=== PATIENT | male | born 1945 | race Two or more races ===

== ENCOUNTER 2025-01-08 15:18 | Inpatient (IN) | payer OTHER, MEDICAID ==
[~2025-01-08] VITALS: Ht 172.7 cm; Wt 81.4 kg
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
--- NOTE | 2025-01-08 16:13 | DVH ---
EXAM: XY L FOOT 3 VIEW XRAY CLINICAL INDICATION: INJURY FX TECHNIQUE: XY L FOOT 3 VIEW XRAY Comparison: None FINDINGS/IMPRESSION: Displacement of the 5th metatarsophalangeal joint. Distal tibia fracture is visualized.
--- NOTE | 2025-01-08 16:18 | DVH ---
EXAM: XR Left Tibia and Fibula, 2 Views CLINICAL INDICATION: INJURY FX TECHNIQUE: Frontal and lateral views of the left tibia and fibula. COMPARISON: None FINDINGS: BONES/JOINTS: Comminuted spiral fracture of the distal tibia and proximal fibula. No dislocation. SOFT TISSUES: Soft tissue swelling.. No radiopaque foreign body. OTHER FINDINGS: . IMPRESSION: Comminuted spiral fracture of the distal tibia and proximal fibula.
--- NOTE | 2025-01-08 16:42 | DVH ---
CLINICAL INDICATION: INJURY FX TECHNIQUE: 3 radiographic views of the left ankle were obtained. Comparison: Tibia and fibula radiograph 01/08/2025 FINDINGS/IMPRESSION: Overlying cast material limits evaluation of the bony and soft tissue fine details. Redemonstration of comminuted spiral fracture of the distal tibia in similar anatomic alignment. No ankle dislocation. Small plantar and posterior calcaneal bony spurs.
[2025-01-08 16:45] LABS: Basophils # (auto) 0 10 ^3/uL (0-0.2); Basophils % (auto) 0.5 % (0.0-2.0); Eosinophils # (auto) 0.1 10 ^3/uL (0-0.8); Eosinophils % (auto) 1.4 % (0.0-7.0); Hemoglobin 13.9 g/dL (13.5-17.5); Lymphocytes # (auto) 3.1 10 ^3/uL (0.4-5.4); Lymphocytes % (auto) 33.7 % (10.0-50.0); Mean Corpuscular Hemoglobin 30.8 pg (28.0-32.0); Mean Corpuscular Hgb Conc. 33.8 g/dL (32.0-36.0); Monocytes % (auto) 10.4 % (0.0-12.0); Neutrophils # (auto) 4.9 10 ^3/uL (1.6-8.6); Nucleated Red Blood Cells % 0.1 %; Platelet Count (auto) 194 10^3/uL (140-450); Red Cell Distribution Width 14.4 % (11.8-14.3); White Blood Cell 9.1 10^3/uL (4.4-10.8)
[2025-01-08 16:55] LABS: INR 0.96 (0.9-1.15); Partial Thromboplastin Time 26.4 SEC (24.5-34.5); Prothrombin Time 10.2 sec (9.3-11.8)
[2025-01-08 16:58] LABS: Alanine Aminotransferase 17 U/L (7-40); Alkaline Phosphatase 82 U/L (46-116); Anion Gap 8 (5-15); BUN/Creatinine Ratio 14.8 (10.0-20.0); Blood Urea Nitrogen 19 mg/dL (9-23); Calcium 9.6 mg/dL (8.7-10.4); Carbon Dioxide 24 mmol/L (20-31); Glucose 102 mg/dL (74-106); Potassium 4.2 mmol/L (3.5-5.1); Sodium 142 mmol/L (136-145); Total Protein 7.2 g/dL (5.7-8.2)
[2025-01-08 16:59] LABS: Albumin 4.2 g/dL (3.2-4.8); Aspartate Aminotransferase 20 U/L (13-40); Bilirubin, Total 0.5 mg/dL (0.2-1.0); Chloride 110 mmol/L (98-107)
[2025-01-08 17:28] LABS: CRP High Sensitivity 1.37 mg/dL (<1.0)
[2025-01-08 18:31] LABS: Erythrocyte Sedimentation Rate 19 mm/hr (0-20)
[2025-01-08] MEDS ORDERED: ACETAMINOPHEN 325 MG TAB PO PRN (22:30)
[2025-01-08] MEDS ORDERED: MORPHINE SULFATE INJ 2 MG/ml SYRG IV PRN ×2 (22:30)
[2025-01-08] MEDS ORDERED: NITROGLYCERIN 0.4 MG SL TAB SL PRN (22:30)
[2025-01-08] MEDS ORDERED: ONDANSETRON HCL 4 MG/2 ML VIAL IV PRN (22:30)
--- NOTE | 2025-01-08 23:03 | DVH ---
CHEST RADIOGRAPH Indication: presurgical Technique: Single frontal view of the chest was obtained COMPARISON: None FINDINGS: Lines and Tubes: None Lungs: Clear Pleura: No effusion. No pneumothorax. Cardiomediastinal contours: Unremarkable IMPRESSION: No abnormality demonstrated.
[2025-01-09] VITALS (8 sets, daily range): BP systolic 115–150; BP diastolic 54–83; PULSE 65–87; RESP 16–19; TEMP 97.4–98.3; O2SAT 92–97
[2025-01-09] MEDS: D5W/SOD CHL 0.45% 1,000 ML IV ONE (00:56)
--- NOTE | 2025-01-09 01:23 | DVHHP2 ---
SERENITY YEAGER SPEEDER FRAME TENDER 01/09/25 0123: History of Present Illness Reason for Visit: Left leg injury History of Present Illness 79-year-old male with past medical history of hypertension presents with complaints of mechanical fall on Wednesday that resulted in left leg injury. Patient initially went to [facility] and was diagnosed with an acute left tibia/fibula fracture. Was discharged home. Patient was sent into the emergency department on January 08, 2025 by his PCP for further evaluation of the left lower extremity due to the patient being on Eliquis. It is unknown why the patient is on Eliquis at this time. Patient denies any fevers, chills, shortness of breath, chest pain, history of AFib, history of DVTs, abdominal pain, and additional injuries. Cardiovascular: HTN Smoke: No ALCOHOL: none Drugs: None Lives: Alone Review of Systems Constitutional: No: Fever, Chills, Sweats, Weakness, Malaise, Other Eyes: No: Pain, Vision change, Conjunctivae inflammation, Eyelid inflammation, Other, Redness ENT: No: Ear pain, Ear discharge, Nose pain, Nose discharge, Nose congestion, Mouth pain, Mouth swelling, Throat pain, Throat swelling, Other Respiratory: No: Cough, Dry, Shortness of breath, SOB with excertion, Wheezing, Hemoptysis, Pleuritic Pain, Sputum, Wheezing, Other Cardiovascular: No: Chest Pain, Palpitations, Orthopnea, Paroxysmal Noc. Dyspnea, Edema, Lt Headedness, Other Gastrointestinal: No: Nausea, Vomiting, Abdominal Pain, Diarrhea, Constipation, Melena, Hematochezia, Other Genitourinary: No Dysuria, No Frequency, No Incontinence, No Hematuria, No Retention, No Other Musculoskeletal: leg pain; No: other, neck pain, shoulder pain, arm pain, back pain, hand pain, foot pain Skin: No: Rash, Lesions, Jaundice, Bruising, Other Neurological: No: Weakness, Numbness, Incoordination, Change in speech, Confusion, Seizures, Other Allergies: Coded Allergies: Codeine (Verified Allergy, Mild, 01/08/25) Morphine (Verified Allergy, Mild, 01/08/25) Medications Current Medications Medications Dose Ordered Sig/Javier Route Start Time Stop Time Status Last Admin Dose Admin Acetaminophen 650 mg Q6HP PRN PO 01/08/25 22:30 Acetaminophen/ Hydrocodone Bitart 1 tab Q4HP PRN PO 01/08/25 22:30 Ondansetron HCl 4 mg Q4HP PRN IV 01/08/25 22:30 Morphine Sulfate 2 mg Q4HPRN PRN IV 01/08/25 22:30 UNV Enoxaparin Sodium 40 mg DAILY SC 01/09/25 10:00 Nitroglycerin 0.4 mg Q5MINP PRN SL 01/08/25 22:30 Morphine Sulfate 2 mg Q30M PRN IV 01/08/25 22:30 UNV Exam Vital Signs Vital Signs Date Time Temp Pulse Resp B/P (MAP) Pulse Ox O2 Delivery O2 Flow Rate FiO2 01/08/25 15:37 98.4 84 18 147/75 (99) 95 98.4 General Appearance: Alert, Oriented X3, Cooperative, mild distress HEENT: Atraumatic, PERRLA, EOMI Respiratory: Clear to auscultation, Normal air movement Cardiovascular: Regular rate, Normal S1, Normal S2 Abdominal: Normal bowel sounds, Soft, No tenderness Extremities: No edema, Other (Unable to assess left lower extremity due to splinting and dressings) Neuro: Normal speech, Strength at 5/5 X4 ext Psych/Mental Status: Mental status NL, Mood NL Labs/Xrays Labs Test 01/08/25 16:09 Range/Units White Blood Count 9.1 4.4-10.8 10^3/uL Red Blood Count 4.50 4.5-5.90 10^6/uL Hemoglobin 13.9 13.5-17.5 g/dL Hematocrit 41.0 41.0-53.0 % Mean Corpuscular Volume 91.0 80.0-100.0 fL Mean Corpuscular Hemoglobin 30.8 28.0-32.0 pg Mean Corpuscular Hemoglobin Concent 33.8 32.0-36.0 g/dL Red Cell Distribution Width 14.4 H 11.8-14.3 % Platelet Count 194 140-450 10^3/uL Mean Platelet Volume 8.7 6.9-10.8 fL Neutrophils (%) (Auto) 54.0 37.0-80.0 % Lymphocytes (%) (Auto) 33.7 10.0-50.0 % Monocytes (%) (Auto) 10.4 0.0-12.0 % Eosinophils (%) (Auto) 1.4 0.0-7.0 % Basophils (%) (Auto) 0.5 0.0-2.0 % Neutrophils # (Auto) 4.9 1.6-8.6 10 ^3/uL Lymphocytes # (Auto) 3.1 0.4-5.4 10 ^3/uL Monocytes # (Auto) 1.0 0-1.3 10 ^3/uL Eosinophils # (Auto) 0.1 0-0.8 10 ^3/uL Basophils # (Auto) 0 0-0.2 10 ^3/uL Nucleated Red Blood Cells 0.1 % Erythrocyte Sedimentation Rate 19 0-20 mm/hr Prothrombin Time 10.2 9.3-11.8 sec Prothrombin Time INR 0.96 0.9-1.15 Activated Partial Thromboplast Time 26.4 24.5-34.5 SEC Sodium Level 142 136-145 mmol/L Potassium Level 4.2 3.5-5.1 mmol/L Chloride Level 110 H 98-107 mmol/L Carbon Dioxide Level 24 20-31 mmol/L Anion Gap 8 5-15 Blood Urea Nitrogen 19 9-23 mg/dL Creatinine 1.28 0.700-1.30 mg/dL Glomerular Filtration Rate Calc 57 >90 mL/min BUN/Creatinine Ratio 14.8 10.0-20.0 Serum Glucose 102 74-106 mg/dL Lactic Acid Level 1.3 0.4-2.0 mmol/L Calcium Level 9.6 8.7-10.4 mg/dL Total Bilirubin 0.5 0.2-1.0 mg/dL Aspartate Amino Transferase (AST) 20 13-40 U/L Alanine Aminotransferase (ALT) 17 7-40 U/L Alkaline Phosphatase 82 46-116 U/L C-Reactive Protein High Sensitivity 1.37 H <1.0 mg/dL B-Type Natriuretic Peptide 63.58 0-100 pg/mL Total Protein 7.2 5.7-8.2 g/dL Albumin 4.2 3.2-4.8 g/dL Assessment/Plan Assessment/Plan Acute comminuted spiral fracture of the distal tibia and proximal fibula Displaced left fifth metatarsal phalangeal joint Hypertension Plan Admit to telemetry Orthopedic surgeon consult. Cardiology consult. Echocardiogram for cardiac clearance. Unknown why the patient is on Eliquis. Hold Eliquis. IVF GI ppx pepcid / DVT ppx lovenox Plan discussed with: Patient My Orders Orders - SERENITY YEAGER NP Procedure Category Date Status Time Admit ADMIT 01/08/25 Transmitted 22:20 Code Status CODE 01/08/25 Transmitted 22:20 Vital Signs JOAQUIN 01/08/25 In Process 22:20 Review Orders With JOAQUIN 01/08/25 In Process Adm.Md 22:20 Npo (Nothing By DIET 01/09/25 Transmitted Mouth) Diet Breakfast Oxygen By Face Mask RT 01/08/25 Transmitted 22:20 Acetaminophen Tablet PHA 01/08/25 In Process (Tylenol Tablet) 22:30 Notify Of Changes JOAQUIN 01/08/25 In Process From Base 22:20 Advance Directive JOAQUIN 01/08/25 In Process 22:20 Echo 2d Mode Cardiac US 01/08/25 Logged DOP 22:20 Basic Metabolic Panel LAB 01/09/25 Logged 05:00 Basic Metabolic Panel LAB 01/10/25 Verified 05:00 Basic Metabolic Panel LAB 01/11/25 Verified 05:00 Basic Metabolic Panel LAB 01/12/25 Verified 05:00 Complete Blood Count LAB 01/09/25 Logged 05:00 Complete Blood Count LAB 01/10/25 Verified 05:00 Complete Blood Count LAB 01/11/25 Verified 05:00 Complete Blood Count LAB 01/12/25 Verified 05:00 Patient Condition ORDERS 01/08/25 Transmitted 22:20 Allergies JOAQUIN 01/08/25 In Process 22:20 Hydrocodone-Acet PHA 01/08/25 In Process 5/325mg Tab ([place] 22:30 Ondansetron Hcl PHA 01/08/25 In Process (Zofran) 22:30 Morphine Sulfate PHA 01/08/25 Pending Injection 22:30 Enoxaparin Sodium PHA 01/09/25 In Process (Lovenox) 10:00 Nitroglycerin PHA 01/08/25 In Process Sublingual (Ntrostat 22:30 Morphine Sulfate PHA 01/08/25 Pending Injection 22:30 Stat Ekg For Chest JOAQUIN 01/08/25 In Process Pain 22:20 Notify Md Of Changes JOAQUIN 01/08/25 In Process From Base 22:20 Rail Car Unloader For JOAQUIN 01/08/25 In Process 24 Hours 22:20 Emergency Dysrhythmia JOAQUIN 01/08/25 In Process Protocol 22:20 Rhythm Strips Once JOAQUIN 01/08/25 In Process Every Shift 22:20 Oxygen By Nasal RT 01/08/25 Transmitted Cannula 22:20 D5w/Sod Chl 0.45% PHA 01/08/25 In Process (D5w 1/2ns) 22:30 Chest Xray 1 View XY 01/08/25 Resulted 22:20 * Cardiology Consult CONS 01/09/25 Transmitted 01:14 Date of Service: Jan 09, 2025 Billing Provider: RADHA MINA MD Common Visit Codes: NOT BILLABLE RADHA MINA MD 01/11/25 1257: Review of Systems Allergies: Coded Allergies: Codeine (Verified Allergy, Mild, 01/08/25) Morphine (Verified Allergy, Mild, 01/08/25) Additional Comments Additional Comments Additional Comments Patient was seen and evaluated by me. I agree with the assessment and plan as outlined by my nurse practitioner. SERENITY YEAGER SPEEDER FRAME TENDER Jan 09, 2025 01:23 RADHA MINA MD Jan 11, 2025 12:57
[2025-01-09] MEDS ORDERED: CHOL20007 PO (05:05)
[2025-01-09] MEDS ORDERED: SIMV20TA20 PO (05:05)
[2025-01-09] MEDS ORDERED: APIX2.5T PO (05:05)
[2025-01-09] MEDS ORDERED: LOSA-534 PO (05:05)
--- NOTE | 2025-01-09 08:31 | ECG ---
[facility] Test Date: 2025-01-09 Test Time: 08:29:43 Pat Name: AGUSTIN GRIER Department: Respiratoy Room: 0202T A Gender: M Wares Sorter: [place] : 1945 Requested By: MARCUS GEORGE Order Number: [id number] Reading MD: Lamont Lal Measurements Intervals [place] Rate: 81 P: -7 NE: 137 QRS: -19 QRSD: 87 T: 39 QT: 389 QTc: 452 Interpretive Statements Sinus rhythm Borderline left axis deviation Electronically Signed On 01-10-2025 20:35:08 PDT by Lamont Lal Please click the below link to view image of tracing.
[2025-01-09] MEDS: ENOXAPARIN SOD 40 MG/0.4 ML SYRINGE SC SCH (10:00)
[2025-01-09] MEDS: HYDROcodone-ACET 5/325MG TAB PO PRN (10:15)
[2025-01-09 10:40] LABS: Chloride 106 mmol/L (98-107); Sodium 140 mmol/L (136-145)
[2025-01-09 10:41] LABS: Anion Gap 7 (5-15); Carbon Dioxide 27 mmol/L (20-31)
[2025-01-09 10:42] LABS: Basophils # (auto) 0 10 ^3/uL (0-0.2); Basophils % (auto) 0.3 % (0.0-2.0); Calcium 9.2 mg/dL (8.7-10.4); Eosinophils # (auto) 0.1 10 ^3/uL (0-0.8); Eosinophils % (auto) 1.1 % (0.0-7.0); Hematocrit 40.8 % (41.0-53.0); Hemoglobin 13.8 g/dL (13.5-17.5); Lymphocytes # (auto) 1.6 10 ^3/uL (0.4-5.4); Lymphocytes % (auto) 19.8 % (10.0-50.0); Mean Corpuscular Hemoglobin 30.6 pg (28.0-32.0); Mean Corpuscular Hgb Conc. 33.7 g/dL (32.0-36.0); Mean Corpuscular Volume 90.6 fL (80.0-100.0); Monocytes # (auto) 0.7 10 ^3/uL (0-1.3); Monocytes % (auto) 8.4 % (0.0-12.0); Neutrophils # (auto) 5.8 10 ^3/uL (1.6-8.6); Neutrophils % (auto) 70.4 % (37.0-80.0); Nucleated Red Blood Cells % 0.1 %; Platelet Count (auto) 178 10^3/uL (140-450); Red Cell Distribution Width 14.1 % (11.8-14.3); White Blood Cell 8.2 10^3/uL (4.4-10.8)
[2025-01-09 10:47] LABS: BUN/Creatinine Ratio 17.3 (10.0-20.0); Blood Urea Nitrogen 18 mg/dL (9-23)
[2025-01-09 10:51] LABS: Glucose 119 mg/dL (74-106)
--- NOTE | 2025-01-09 12:47 | DVHINCON2 ---
Consult Note Consult Consult Note Chief Complaint: Left lower extremity pain after ground-level fall. --- History of Present Illness: Patient is an approximately 79-year-old individual who presented to the emergency department after a ground-level fall. Imaging demonstrated a left distal tib/fib fracture. The patient was admitted for orthopedic evaluation and management. The patient reports localized left lower leg pain but denies any other joint pain. No complaints of numbness or weakness. No Splint.NWB Denies any Cardiac, Pulm or other hx. Denies DM2, Smoking hx. --- Physical Exam: Left Lower Extremity: Tenderness over distal tib/fib region Mild swelling noted No open wounds, erythema, or ecchymosis No gross deformity No signs of compartment syndrome Neurovascular status: Grossly intact distally Other Joints: No complaints or findings General: Alert and oriented, mild discomfort --- Imaging: X-ray shows a left distal tib/fib fracture ; Comminuted spiral fracture of the distal tibia and proximal fibula, no dislocation No additional acute findings --- Assessment: 1. Left distal tib/fib fracture --- Plan: Proceed with operative fixation of the Tib/Fib, Closed, Surgical intervention with ORIF discussed with patient, including risks, benefits, and alternatives Patient agreed to proceed with surgery NPO after midnight Informed consent obtained today by surgical team Surgery scheduled for tomorrow Recs to Hospitalist : if on blood thinner hold for at least 24 hours preoperatively All questions answered; patient and ER team in agreement with treatment plan Pain management and limb precautions discussed with patient and Nurse, To be managed by hospitalist Monitor for signs of neurovascular compromise or increased pain/swelling All questions answered, Contact Ortho as needed Plan discussed with: Patient, Other (bedside Nurse) Visit Coding Surgery Date of Service if different f: Jan 09, 2025 Billing Provider: BRIGIDO PARK Surgery Visit Codes: 48155 - INP CONSULT <55 MIN BRIGIDO PARK Jan 09, 2025 12:47
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
[2025-01-10] VITALS (14 sets, daily range): BP systolic 98–144; BP diastolic 65–80; PULSE 83–110; RESP 10–20; TEMP 97.8–98.7; O2SAT 90–97
[2025-01-10 07:13] LABS: Basophils # (auto) 0 10 ^3/uL (0-0.2); Basophils % (auto) 0.3 % (0.0-2.0); Eosinophils # (auto) 0.1 10 ^3/uL (0-0.8); Eosinophils % (auto) 1.4 % (0.0-7.0); Hematocrit 36.7 % (41.0-53.0); Hemoglobin 12.6 g/dL (13.5-17.5); Lymphocytes # (auto) 2.4 10 ^3/uL (0.4-5.4); Mean Corpuscular Hemoglobin 31.2 pg (28.0-32.0); Mean Corpuscular Hgb Conc. 34.3 g/dL (32.0-36.0); Monocytes # (auto) 0.9 10 ^3/uL (0-1.3); Monocytes % (auto) 10.5 % (0.0-12.0); Neutrophils # (auto) 5.1 10 ^3/uL (1.6-8.6); Neutrophils % (auto) 59.8 % (37.0-80.0); Platelet Count (auto) 163 10^3/uL (140-450); Red Blood Cells 4.03 10^6/uL (4.5-5.90); White Blood Cell 8.5 10^3/uL (4.4-10.8)
[2025-01-10 07:21] LABS: Anion Gap 8 (5-15); Carbon Dioxide 25 mmol/L (20-31); Chloride 106 mmol/L (98-107); Potassium 3.9 mmol/L (3.5-5.1); Sodium 139 mmol/L (136-145)
[2025-01-10 07:22] LABS: Calcium 9.2 mg/dL (8.7-10.4)
[2025-01-10 07:28] LABS: BUN/Creatinine Ratio 15.9 (10.0-20.0); Blood Urea Nitrogen 18 mg/dL (9-23); Glucose 103 mg/dL (74-106)
[2025-01-10] MEDS ORDERED: GLYCOPYRROLATE 0.2 MG/ML 1ML VIAL ONE (13:34)
[2025-01-10] MEDS ORDERED: ONDANSETRON HCL 4 MG/2 ML VIAL ONE (13:34)
[2025-01-10] MEDS ORDERED: MORPHINE SULF PF 5 MG/10 ML VIAL ONE (13:34)
[2025-01-10] MEDS ORDERED: fentaNYL CITRATE 100 MCG/2 ML VL ONE (13:34)
[2025-01-10] MEDS ORDERED: MIDAZOLAM HCL 2MG/2ML 2ml VIAL (1mg/ml) ONE (13:34)
--- NOTE | 2025-01-10 16:03 | DVHPN2 ---
Subjective Patient was currently in OR. Reviewed: Care Plan Changes from previous H/P or p: No Changes Eyes: No Pain, No Vision change, No Conjunctivae inflammation, No Eyelid inflammation, No Other, No Redness ENT: No Ear pain, No Ear discharge, No Nose pain, No Nose discharge, No Nose congestion, No Mouth pain, No Mouth swelling, No Throat pain, No Throat swelling, No Other Cardiovascular: No Chest Pain, No Palpitations, No Orthopnea, No Paroxysmal Noc. Dyspnea, No Edema, No Lt Headedness, No Other Respiratory: No Cough, No Dry, No Shortness of breath, No SOB with excertion, No Wheezing, No Hemoptysis, No Pleuritic Pain, No Sputum, No Other Gastrointestinal: No Nausea, No Vomiting, No Abdominal Pain, No Diarrhea, No Constipation, No Melena, No Hematochezia, No Other Genitourinary: No Dysuria, No Frequency, No Incontinence, No Hematuria, No Retention, No Other Musculoskeletal: No other, No neck pain, No shoulder pain, No arm pain, No back pain, No hand pain; leg pain; No foot pain Skin: No Rash, No Lesions, No Jaundice, No Bruising, No Other Objective Vitals Vital Signs Date Time Temp Pulse Resp B/P (MAP) Pulse Ox O2 Delivery O2 Flow Rate FiO2 01/10/25 12:52 98.7 83 17 131/72 (91) 97 98.7 01/10/25 08:00 Room Air* 0 21 Intake/Output Intake and Output 01/10/25 07:00 Intake Total 1775 ml Output Total 1900 ml Balance -125 ml Intake Oral 1025 ml IV Total 750 ml Output Urine Total 1900 ml # Bowel Movements 1 Medications Current Medications Medications Dose Ordered Sig/Javier Route Start Time Stop Time Status Last Admin Dose Admin Acetaminophen 650 mg Q6HP PRN PO 01/08/25 22:30 Acetaminophen/ Hydrocodone Bitart 1 tab Q4HP PRN PO 01/08/25 22:30 01/09/25 17:49 1 TAB Ondansetron HCl 4 mg Q4HP PRN IV 01/08/25 22:30 Morphine Sulfate 2 mg Q4HPRN PRN IV 01/08/25 22:30 Hold Enoxaparin Sodium 40 mg DAILY SC 01/09/25 10:00 Nitroglycerin 0.4 mg Q5MINP PRN SL 01/08/25 22:30 Morphine Sulfate 2 mg Q30M PRN IV 01/08/25 22:30 Hold Laboratory Results Laboratory Tests 01/10/25 04:56 Chemistry Test 01/10/25 04:56 Calcium Level 9.2 mg/dL (8.7-10.4) Microbiology Microbiology Date/Time Source Procedure Growth Status 01/09/25 06:50 Nose MRSA Screen - Final Complete Assessment/Plan Assessment/Plan 79-year-old male with a known history of hypertension, dyslipidemia who initially has been in the hospital with a left lower extremity swelling and pain. Patient was recently had a fall and was seen at [facility] was sent home. Patient was primary doctor send the patient for surgical intervention. 1. Acute comminuted spiral fracture of the distal tibia and proximal fibula 2.Displaced left fifth metatarsal phalangeal joint 3. Hypertension 4. dyslipidemia -continue pain meds as needed, surgical intervention today Plan discussed with: Other Date of Service: Jan 10, 2025 Billing Provider: RADHA MINA MD Common Visit Codes: NOT BILLABLE RADHA MINA MD Jan 10, 2025 16:03
--- NOTE | 2025-01-10 17:09 | DVHOP2 ---
Operative Report - 2 Report Details Date: 01/10/25 Preop Diagnosis: Left tibia/fibula fracture displaced Postop Diagnosis: Left tibia/fibula fracture displaced Surgeon: Maya Martinez MD Manager Of Data: Katrin MALCOLM Anesthesiologist: Francisco Javier Anesthesia: Regional Implant: Vertex tibial nail 10 x 330 mm, four locking screws Consent: The patient was informed of the risks and benefits of the procedure. These include but are not limited to complications of anesthesia, postoperative infection, incomplete relief of symptoms, recurrence of symptoms, damage to blood vessels, nerves and tendons, deep venous thrombosis, pulmonary embolism and possible need for repeat surgery in the future. Complications: None Estimated Blood Loss: 50 cc Fluids: See anesthesia record Findings: Distal spiral fracture of the tibia with some displacement and proximal fibula fracture, evidence of prior healed tibia fracture Indications for Surgery: Unstable tib-fib fracture left lower extremity Name of Procedure Performed Closed reduction, intramedullary nail left tibia fracture, C-arm fluoroscopy Procedure Details Procedure Details: Patient was brought to the operating room given spinal anesthetic with adequate analgesia obtained. Preop patient received IV Ancef. Tourniquet applied to left thigh. Left lower extremity was prepped and draped in sterile fashion. Surgical time-out was performed verifying patient, laterality, and procedure. I brought in C-arm to verify fracture pattern and reducability. Extremity elevat ed, exsanguinated with Esmarch, and tourniquet inflated to 250 mm Hg. Longitudinal incision was made at the superior patella. I dissect the subcutaneous tissue to identify the quadriceps tendon. I made a split in the tendon then attempted to pass the soft tissue protector from the vertex system though it was too tight so I extended the incision down the medial patella. Eventually, I was able to position the soft tissue sleeve a properly and this was verified with C-arm fluoroscopy and I passed a guidewire in the proximal tibia and again checked position AP and lateral views. I then removed the guidewire guide and used a Reamer to initiate my proximal tibia reaming. I then removed the short guidewire and passed a long guidewire and visualized it as across the fracture site distally. Guidewire position was confirmed with C-arm fluoroscopy. I used the depth gauge to measure my proposed nail length. I then began reaming starting with 9 mm and increasing in 0.5 mm increments up to 11.5 mm. I decided on a 10 x 330 mm nail. The nail was attached to the insertion guide. This was then tapped down over the guidewire until it reached the fracture site and I held the fracture reduced while passing it down to the physeal scar at the distal tibia. Position verified AP and lateral C-arm. I then positioned the C-arm to achieve a round hole anteriorly. I used C-arm to guide skin incision. I then used a Jenifer to spread soft tissue down to bone. I then used the C-arm and a drill and verified that I had hit the distal locking hole anterior posterior. I used a depth gauge and applied a anterior-posterior distal locking screw. I then brought the C-arm into lateral position and achieved round holes with the C-arm on the distal locking transverse holes. I again used C-arm to guide skin incision followed my using C-arm to guide drilling across the tibia and through the distal locking hole which was again verified with C-arm. I used a depth gauge and applied the distal locking screw. In similar fashion I applied the 2nd distal locking screw transversely. I then used a slap hammer two slap proximally to compress the fracture. There was some slight rotation and mild varus angulation though well within acceptable limits. I then used the guide hole at the proximal insertion jig passing the cannula down to skin made skin incision passed cannula bone drilled and measured screw length off the drill bit and applied a 40 mm proximal locking screw. I removed the insertion jig. I obtained AP and lateral x-rays throughout the length of the tibia verifying fracture reduction hardware placement. Wounds were irrigated with normal saline bulb syringe. Tourniquet was released and achieved hemostasis with Bovie. I repaired the extensor mechanism with 1. Ethibond interrupted [id number]. Deep subcu was closed with 0 Vicryl superficial subQ closed with 2-0 Vicryl skin with elaine wounds dressed sterilely. Patient tolerated the procedure well was brought to recovery room in stable condition. Condition Stable Disposition Still a Patient MAYA MARTINEZ MD Jan 10, 2025 17:09
[2025-01-10] MEDS ORDERED: NALOXONE HCL 0.4 MG/ML VIAL IV PRN (17:30)
[2025-01-10] MEDS ORDERED: DexAMETHasone SOD PHOS 10MG/1ML VIAL INJ IV PRN (17:30)
[2025-01-10] MEDS ORDERED: ONDANSETRON HCL 4 MG/2 ML VIAL IV PRN (17:30)
[2025-01-10] MEDS ORDERED: diphenhdrAMINE HCL 50 MG/1 ML VL IV PRN (17:30)
--- NOTE | 2025-01-10 18:41 | DVH ---
C-ARM FLUOROSCOPY: PROCEDURE: Left tibia ORIF FLUOROSCOPY TIME: 4 minutes and 31 seconds DAP: 1 mgy FINDINGS: Spot intraoperative C arm radiographs demonstrating left tibia ORIF. IMPRESSION: Please refer to surgical report for detailed findings.
[2025-01-10] MEDS: ceFAZolin 2 GM/D5W50ml 50 ML IV SCH (21:30)
[2025-01-10] MEDS: HYDROcodone-ACET 10/325MG TAB PO PRN (21:31)
[2025-01-11] VITALS (29 sets, daily range): BP systolic 102–140; BP diastolic 53–87; PULSE 78–111; RESP 15–20; TEMP 97.9–99.4; O2SAT 94–98
[2025-01-11 06:02] LABS: Basophils # (auto) 0 10 ^3/uL (0-0.2); Basophils % (auto) 0.2 % (0.0-2.0); Eosinophils # (auto) 0.1 10 ^3/uL (0-0.8); Eosinophils % (auto) 0.6 % (0.0-7.0); Hematocrit 34.1 % (41.0-53.0); Hemoglobin 11.9 g/dL (13.5-17.5); Lymphocytes # (auto) 1.6 10 ^3/uL (0.4-5.4); Lymphocytes % (auto) 15.9 % (10.0-50.0); Mean Corpuscular Hemoglobin 31.8 pg (28.0-32.0); Mean Corpuscular Volume 90.8 fL (80.0-100.0); Monocytes # (auto) 1.3 10 ^3/uL (0-1.3); Monocytes % (auto) 12.9 % (0.0-12.0); Neutrophils # (auto) 7.1 10 ^3/uL (1.6-8.6); Neutrophils % (auto) 70.4 % (37.0-80.0); Platelet Count (auto) 148 10^3/uL (140-450); Red Blood Cells 3.75 10^6/uL (4.5-5.90); Red Cell Distribution Width 13.9 % (11.8-14.3); White Blood Cell 10.1 10^3/uL (4.4-10.8)
[2025-01-11 06:13] LABS: Chloride 101 mmol/L (98-107); Potassium 4.2 mmol/L (3.5-5.1)
[2025-01-11 06:14] LABS: Anion Gap 7 (5-15); Carbon Dioxide 27 mmol/L (20-31)
[2025-01-11 06:17] LABS: Sodium 135 mmol/L (136-145)
[2025-01-11 06:19] LABS: BUN/Creatinine Ratio 15.4 (10.0-20.0); Blood Urea Nitrogen 16 mg/dL (9-23)
[2025-01-11 06:27] LABS: Glucose 128 mg/dL (74-106)
[2025-01-11] MEDS: APIXABAN 2.5 MG TAB PO SCH (10:28)
[2025-01-11] MEDS: KETOROLAC TROMETH 30 MG/ML 1ML VIAL IV PRN (10:45)
--- NOTE | 2025-01-11 11:05 | DVHPN2 ---
Progress Note - Dictate Date Seen: Jan 11, 2025 Medical Necessity Reason Pt with a Central, PICC or Fol: Yes The following are medically ne: Ferrell Catheter Subjective Patient was lying comfortably in bed during my evaluation reports some postoperative knee and ankle pain that is being well managed with the help of pain medication. Patient reports that he has not gotten up and walked and has remained in bed since surgery although he has tried to perform some gentle [id number] exercises while in bed. Patient is otherwise feeling well denying any other complaints or concerns during my evaluation. vital signs Vital Sign Date Time Temp Pulse Resp B/P (MAP) Pulse Ox O2 Delivery O2 Flow Rate FiO2 01/11/25 08:51 98.7 96 19 109/53 (71) 95 98.7 01/10/25 20:00 Room Air* 0 21 Total Intake and Output 01/10/25 01/10/25 01/11/25 15:00 23:00 07:00 Intake Total 100 ml 0 ml 480 ml Output Total 1000 ml 525 ml Balance 100 ml -1000 ml -45 ml medications Current Medications Medications Dose Ordered Sig/Javier Route Start Time Stop Time Status Last Admin Dose Admin Acetaminophen 650 mg Q6HP PRN PO 01/08/25 22:30 Ondansetron HCl 4 mg Q4HP PRN IV 01/08/25 22:30 Nitroglycerin 0.4 mg Q5MINP PRN SL 01/08/25 22:30 Morphine Sulfate 2 mg Q30M PRN IV 01/08/25 22:30 Hold Apixaban 2.5 mg BID PO 01/11/25 10:00 01/11/25 10:28 2.5 MG Acetaminophen/ Hydrocodone Bitart 1 tab Q4HP PRN PO 01/10/25 17:15 01/10/25 21:31 1 TAB Diphenhydramine HCl 12.5 mg Q4HP PRN IV 01/10/25 17:30 Ondansetron HCl 4 mg Q4HP PRN IV 01/10/25 17:30 Ketorolac Tromethamine 15 mg Q6HP PRN IV 01/10/25 17:30 01/15/25 17:29 01/11/25 10:45 15 MG objective A&O x4 in no acute distress Knee and ankle range of motion grossly limited with pain on movement Dressing clean, dry, and intact Mild distal edema but no calf tenderness to palpation Neurovascularly intact with cap refill less than 2 seconds laboratory and microbiology Laboratory Tests 01/11/25 05:07 Test 01/11/25 05:07 Range/Units Serum Glucose 128 H 74-106 mg/dL Assessment/Plan Continue current management as well as pain control and may initiate physical therapy for gait training although patient is to remain nonweightbearing on his operative leg. Given the patient's age, injury, and the fact that he lives home alone on the 2nd floor we have recommended the patient be transferred to a long term facility for further assistance for the acute phase of his rehabilitation. I instructed the patient to follow up with our office in 10-14 days for his 1st postoperative evaluation. He understood and agreed Dietary Evaluation Review Comments: Encourage and monitor good PO intakes. Expected Outcomes/Goals: healed bones and wounds. maintain wt. Plan discussed with: Patient SELVIN CASTELLANOS Jan 11, 2025 11:05
--- NOTE | 2025-01-11 11:52 | DVHDS2 ---
Discharge Summary Date of Admission Jan 08, 2025 at 22:20 Date of Discharge: Jan 11, 2025 Labs/Diagnostic Data: Laboratory Results Test 01/11/25 05:07 01/08/25 16:09 White Blood Count 10.1 10^3/uL (4.4-10.8) Red Blood Count 3.75 10^6/uL (4.5-5.90) Hemoglobin 11.9 g/dL (13.5-17.5) Hematocrit 34.1 % (41.0-53.0) Mean Corpuscular Volume 90.8 fL (80.0-100.0) Mean Corpuscular Hemoglobin 31.8 pg (28.0-32.0) Mean Corpuscular Hemoglobin Concent 35.0 g/dL (32.0-36.0) Red Cell Distribution Width 13.9 % (11.8-14.3) Platelet Count 148 10^3/uL (140-450) Mean Platelet Volume 8.5 fL (6.9-10.8) Neutrophils (%) (Auto) 70.4 % (37.0-80.0) Lymphocytes (%) (Auto) 15.9 % (10.0-50.0) Monocytes (%) (Auto) 12.9 % (0.0-12.0) Eosinophils (%) (Auto) 0.6 % (0.0-7.0) Basophils (%) (Auto) 0.2 % (0.0-2.0) Neutrophils # (Auto) 7.1 10 ^3/uL (1.6-8.6) Lymphocytes # (Auto) 1.6 10 ^3/uL (0.4-5.4) Monocytes # (Auto) 1.3 10 ^3/uL (0-1.3) Eosinophils # (Auto) 0.1 10 ^3/uL (0-0.8) Basophils # (Auto) 0 10 ^3/uL (0-0.2) Nucleated Red Blood Cells 0.0 % Sodium Level 135 mmol/L (136-145) Potassium Level 4.2 mmol/L (3.5-5.1) Chloride Level 101 mmol/L (98-107) Carbon Dioxide Level 27 mmol/L (20-31) Anion Gap 7 (5-15) Blood Urea Nitrogen 16 mg/dL (9-23) Creatinine 1.04 mg/dL (0.700-1.30) Glomerular Filtration Rate Calc 73 mL/min (>90) BUN/Creatinine Ratio 15.4 (10.0-20.0) Serum Glucose 128 mg/dL (74-106) Calcium Level 9.0 mg/dL (8.7-10.4) Erythrocyte Sedimentation Rate 19 mm/hr (0-20) Prothrombin Time 10.2 sec (9.3-11.8) Prothrombin Time INR 0.96 (0.9-1.15) Activated Partial Thromboplast Time 26.4 SEC (24.5-34.5) Lactic Acid Level 1.3 mmol/L (0.4-2.0) Total Bilirubin 0.5 mg/dL (0.2-1.0) Aspartate Amino Transferase (AST) 20 U/L (13-40) Alanine Aminotransferase (ALT) 17 U/L (7-40) Alkaline Phosphatase 82 U/L (46-116) C-Reactive Protein High Sensitivity 1.37 mg/dL (<1.0) B-Type Natriuretic Peptide 63.58 pg/mL (0-100) Total Protein 7.2 g/dL (5.7-8.2) Albumin 4.2 g/dL (3.2-4.8) Other Laboratory Tests 01/11/25 05:07 Brief Hx & Hospital Course: 79-year-old male with a known history of hypertension, dyslipidemia who initially has been in the hospital with a left lower extremity swelling and pain. Patient was recently had a fall and was seen at [facility] was sent home. Patient was primary doctor send the patient for surgical intervention. Patient was found to have left tibial spiral fracture with fibula fracture. Patient was was taken to OR by Orthopedics underwent has been closed reduction and intramedullary nailing of the left tibia. Postoperatively the patient was did fairly well. Orthopedics has recommending nonweightbearing of the left lower extremity for two weeks. Patient was to follow up with the PCP and Orthopedics in 1-2 weeks upon discharge from [facility] facility. Condition at Discharge: Stable Final Diagnosis/Problems List Left tibia/fibula fracture displaced Discharge Disposition: [facility] Discharge Will this Physician continue t: No Discharge Instruct/Medications Diet: Cardiac 2g Na,low cholest Activity: See Comment Activity comment: Nonweightbearing of the left lower extremity for two weeks as per Orthopedics recommendations Follow Up/Referral: Follow up with the PCP in one week Follow up with Orthopedics in one week upon discharge from detention facility Medications: As reconciled and prescribed Discharge Statement: "Patient was advised to return to the ER or call 911 if any headaches, dizziness, shortness of breath, chest pain, abdominal pain, bleeding, fevers, or worsening of medical condition. Patient was counseled about treatment plan, medications, possible side effects, patient�verbalized understanding. All questions were answered to the best of my ability. This discharge took greater then 30 minutes in planning, reviewing documentation, counseling the patient, and discussing with other team members." DME: Diagnosis: left tibia fracture ASSESSMENT ASSESSMENT Assessment Left tibia/fibula fracture displaced Date of Service: Jan 11, 2025 Billing Provider: RADHA MINA MD Common Visit Codes: NOT BILLABLE RADHA MINA MD Jan 11, 2025 11:52
--- NOTE | 2025-01-13 21:37 | DVHSR ---
APPROVED REPORT EXAM: Two-dimensional and M-mode echocardiogram with Doppler and color Doppler. Blood Pressure: 150/83 mmHg INDICATION Pre-Op RISK FACTORS Height: 5'8", Weight: 186 DIMENSIONS LVDd4.6 (3.8-5.7cm)LA (2D)4.1 (1.9-4.0cm)Aortic Root3.4 (2.0-3.7cm) LVDs3.1 (2.5-4.0cm)LA (MM) (1.9-4.0cm)Aortic Cusp Exc1.8 (1.5-2.0cm) EF (%) 60.0 (55-70%)Rt. Atrium4.0 (1.9-4.0cm)Asc. Aorta3.2 cm IVSd0.9 (0.7-1.1cm)RV (D)5.0 (1.8-2.4cm) Mitral Valve MitralMitral Stenosis E wave0.74m/sMV Mean GR.mmHg A wave1.19m/sMV Peak GR.mmHg E/A ratio0.62D MVAcm2 DECEL [id number] 1/2 Timems Aortic Valve Aortic ValveAortic Stenosis V11.20m/Blas Mean GR.4mmHg V21.35m/Blas Peak GR.7mmHg LVOT Diameter2.2 (1.8-2.4cm)Doppler AVA3.38cm2 Pulmonic Valve V20.84m/s Other Information Quality : Technically LimitedRhythm : Technically limited study due to body habitus. Conclusion NORMAL LV EF ANDIS 65% NORMAL VALVES SLIGHTLY DILATED RV AND RA NORMAL RV FUNCTION NO EFFUSION
== END 2025-01-11 23:58 | DRG 494 ==
LOC: ER 15:28 → OVERFLOW 22:20 → TELE-CENTR 01-09 04:52
PROVIDERS: ADMIT Nurse Practitioner Family; ATTEND Nurse Practitioner Family
PROC: 0QSH04Z Reposition Left Tibia with Internal Fixation Device, Open Approach (ICD-10-PCS; 2025-01-10)
PROC: 0QSK04Z Reposition Left Fibula with Internal Fixation Device, Open Approach (ICD-10-PCS; principal; 2025-01-10 15:00)
DX: S82.252A Displaced comminuted fracture of shaft of left tibia, initial encounter for closed fracture (principal); S82.242A Displaced spiral fracture of shaft of left tibia, initial encounter for closed fracture; I10 Essential (primary) hypertension; S82.832A Other fracture of upper and lower end of left fibula, initial encounter for closed fracture; E78.5 Hyperlipidemia, unspecified; Z88.5 Allergy status to narcotic agent; Z79.899 Other long term (current) drug therapy; Z79.01 Long term (current) use of anticoagulants; W18.39XA Other fall on same level, initial encounter; Y93.89 Activity, other specified; Y92.89 Other specified places as the place of occurrence of the external cause; Y99.8 Other external cause status
CPT/HCPCS: 36415; 71045; 73590; 73610; 73630; 76000; 80048; 80053; 83605; 83880; 85025; 85610; 85652; 85730; 86141; 87081; 93005; 93306; 97163; G0378; J1885; J2250; J2405; J7042